=== PATIENT | male | born 1950 | race Caucasian/White ===

== ENCOUNTER → 2017-02-12 | Outpatient (CLI) | payer MEDICARE, BC, OTHER ==
[~2017-02-12] MED LIST: /PANT40TA; ASPI325T; HYDROXYUREA; LOVA40TA; METO25TA2; PHEN300C; PHENYTOIN SODIUM
[2017-02-12 13:29] LABS: ADD MANUAL DIFFER YES; MEAN CORPUSCULAR HEMOGLOBIN 44.9 pg (27.0-33.0); MEAN CORPUSCULAR HGB CONC 36.5 g/dl (32.0-36.5); MEAN CORPUSCULAR VOLUME 122.9 fl (80.0-96.0); PLATELET COUNT, AUTOMATED 311 k/mm3 (150-450); RED CELL DISTRIBUTION WIDTH 12.6 % (11.5-14.5); WHITE BLOOD COUNT 7.2 K/mm3 (4.0-10.0)
[2017-02-12 14:07] LABS: HYPERSEGMENTED POLYS 1+
[2017-02-12 14:23] LABS: ALBUMIN 4.2 GM/DL (3.2-5.2); ALBUMIN/GLOBULIN RATIO 1.24 (1.00-1.93); ALKALINE PHOSPHATASE 102 U/L (45-117); ALT/SGPT 22 U/L (12-78); ANION GAP 7 MEQ/L (8-16); AST/SGOT 16 U/L (15-37); BILIRUBIN,TOTAL 0.7 MG/DL (0.2-1.0); BLOOD UREA NITROGEN 22 MG/DL (7-18); CALCIUM LEVEL 9.3 MG/DL (8.8-10.2); CARBON DIOXIDE LEVEL 30 MEQ/L (21-32); CHLORIDE LEVEL 104 MEQ/L (98-107); CREATININE FOR GFR 0.86 MG/DL (0.70-1.30); GLOMERULAR FILTRATION RATE > 60.0 (>49); GLUCOSE, FASTING 77 MG/DL (80-110); POTASSIUM SERUM 4.6 MEQ/L (3.5-5.1); SODIUM LEVEL 141 MEQ/L (136-145); TOTAL PROTEIN 7.6 GM/DL (6.4-8.2); URIC ACID 4.1 MG/DL (3.5-7.2)
[2017-02-12 14:50] LABS: ERYTHROCYTE SEDIMENTATION RATE 24 mm/hr (0-20)
== END ==
LOC: M SMT 10:25
PROVIDERS: ATTEND Family Medicine
DX: L03.115 Cellulitis of right lower limb (principal); R23.3 Spontaneous ecchymoses

== ENCOUNTER → 2017-07-29 | Outpatient (REF) | payer MEDICARE, OTHER ==
[2017-07-29 13:52] LABS: FREE T4 0.87 NG/DL (0.76-1.46)
[2017-07-30 14:14] LABS: PSA TOTAL 1.2 ng/mL (0.0-4.0)
== END ==
LOC: M LAB REF 12:31
PROVIDERS: ATTEND Family Medicine
DX: E78.2 Mixed hyperlipidemia (principal); K22.70 Barrett's esophagus without dysplasia; R35.1 Nocturia

== ENCOUNTER → 2017-11-06 | Outpatient (REF) | payer MEDICARE, OTHER ==
[2017-11-06 14:18] LABS: INFLUENZA A AMPLIFICATION NEGATIVE (NEGATIVE); INFLUENZA B AMPLIFICATION NEGATIVE (NEGATIVE)
== END ==
LOC: M LAB REF 13:05
DX: J06.9 Acute upper respiratory infection, unspecified (principal)
CPT/HCPCS: 87502

== ENCOUNTER → 2017-11-08 | Outpatient (CLI) | payer MEDICARE, BC, OTHER | LOC: M SMT 09:48 | DX: J16.8 Pneumonia due to other specified infectious organisms (principal) | CPT/HCPCS: 71046 ==

== ENCOUNTER → 2017-11-18 | Outpatient (CLI) | payer MEDICARE, BC, OTHER | LOC: M SMT 15:05 | DX: J16.8 Pneumonia due to other specified infectious organisms (principal) | CPT/HCPCS: 71046 ==

== ENCOUNTER → 2017-11-19 | Outpatient (REF) | payer MEDICARE, OTHER | LOC: M LAB REF 16:57 | DX: J16.8 Pneumonia due to other specified infectious organisms (principal) | CPT/HCPCS: 87205 ==

== ENCOUNTER 2017-12-02 10:28 | Inpatient (IN) | payer MEDICARE, BC, OTHER ==
[2017-12-02] MEDS: ENOXAPARIN 40 MG/0.4 ML SYRINGE (J1650) SC (09:00)
[2017-12-02] MEDS ORDERED: IPRATROPIUM 0.5MG/ALBUTEROL 2.5MG INH SOL UD 3ML (DUONEB)(J7620) NEB ×3 (11:15→17:00)
[2017-12-02 12:09] LABS: VENOUS BASE EXCESS 1.6 (-2.0-2.0); VENOUS HCO3 25.4 MEQ/L (23.0-27.0); VENOUS O2 SATURATION 80.7 % (60.0-80.0); VENOUS PARTIAL PRESSURE CO2 37.4 mmHg (38.0-50.0); VENOUS STANDARD HCO3 25.5 MEQ/L; VENOUS TOTAL CO2 26.6 MEQ/L (24.0-28.0)
[2017-12-02 12:21] LABS: PROTHROMBIN TIME 14.3 SECONDS (12.4-14.5)
[2017-12-02] MEDS: methylPREDNISolone INJ 125 MG/2 ML VIAL (J2930) IV (12:22)
[2017-12-02 12:23] LABS: BASO % 0.5 % (0.0-1.0); EOS # 0.1 10^3/uL (0.0-0.50); EOS % 0.9 % (0.0-3.0); HEMATOCRIT 33.5 % (42.0-52.0); HEMOGLOBIN 12.2 g/dl (13.5-17.5); IMMATURE GRANULOCYTE % 0.2 % (0-3.0); LYMPH # 1.1 10^3/uL (1.5-4.5); LYMPH % 19.9 % (24.0-44.0); MEAN CORPUSCULAR HEMOGLOBIN 41.5 pg (27.0-33.0); MEAN CORPUSCULAR HGB CONC 36.4 g/dl (32.0-36.5); MEAN CORPUSCULAR VOLUME 113.9 fl (80.0-96.0); MONO # 0.6 10^3/uL (0.0-0.8); MONO % 10.4 % (0.0-5.0); NEUTROPHILS # 3.8 10^3/uL (1.8-7.7); NEUTROPHILS % 68.1 % (36.0-66.0); PLATELET COUNT, AUTOMATED 406 10^3/uL (150-450); RED BLOOD COUNT 2.94 10^6/uL (4.30-6.10); RED CELL DISTRIBUTION WIDTH 11.9 % (11.5-14.5); WHITE BLOOD COUNT 5.6 10^3/uL (4.0-10.0)
[2017-12-02 12:37] LABS: LACTIC ACID SEPSIS PROTOCOL 0.8 MMOL/L (0.4-2.0)
[2017-12-02 12:39] LABS: ALBUMIN 4.1 GM/DL (3.2-5.2); ALBUMIN/GLOBULIN RATIO 1.03 (1.00-1.93); ALKALINE PHOSPHATASE 117 U/L (45-117); ALT/SGPT 23 U/L (12-78); ANION GAP 5 MEQ/L (8-16); AST/SGOT 23 U/L (7-37); BILIRUBIN,DIRECT 0.1 MG/DL (0.0-0.2); BILIRUBIN,TOTAL 0.4 MG/DL (0.2-1.0); BLOOD UREA NITROGEN 11 MG/DL (7-18); CALCIUM LEVEL 8.8 MG/DL (8.8-10.2); CARBON DIOXIDE LEVEL 28 MEQ/L (21-32); CHLORIDE LEVEL 108 MEQ/L (98-107); CPK CREATINE PHOSPHOKINASE 69 U/L (39-308); CREATININE FOR GFR 0.83 MG/DL (0.70-1.30); GLOMERULAR FILTRATION RATE > 60.0 (>49); GLUCOSE, FASTING 84 MG/DL (70-100); POTASSIUM SERUM 4.2 MEQ/L (3.5-5.1); SODIUM LEVEL 141 MEQ/L (136-145); TOTAL PROTEIN 8.1 GM/DL (6.4-8.2); TROPONIN I < 0.02 NG/ML (< 0.10)
[2017-12-02 12:45] LABS: CK-MB VALUE MASS < 1.0 NG/ML (<3.6); MB/CK RELATIVE INDEX 1.44 (< OR =4); NT-PRO BNP 230 PG/ML (<125)
[2017-12-02] MEDS ORDERED: ISOVUE-370 76% 100ML VIAL (Q9967) As Ordered (13:34)
[2017-12-02 15:13] LABS: PHENYTOIN (DILANTIN) 5.7 UG/ML (10.0-20.0)
[2017-12-02] MEDS ORDERED: ACETAMINOPHEN TAB 650MG DOSE (2X325MG) PO (16:30)
[2017-12-02] MEDS ORDERED: NITROGLYCERIN 0.4 MG SUBL TABLET SL (16:30)
[2017-12-02 17:02] LABS: C REACTIVE PROTEIN QUANTITATIV 0.63 MG/DL (0.00-0.30)
[2017-12-02 17:14] LABS: ERYTHROCYTE SEDIMENTATION RATE 43 mm/hr (0-20)
[2017-12-02] MEDS: predniSONE 20 MG TAB PO (18:53)
[2017-12-02] MEDS: IPRATROPIUM 0.5MG/ALBUTEROL 2.5MG INH SOL UD 3ML (DUONEB)(J7620) NEB ×2 (20:11→23:25)
[2017-12-02] MEDS ORDERED: SLF 3 ML SYR IV (20:15)
[2017-12-02] MEDS: SIMVASTATIN 40 MG TAB PO (21:31)
[2017-12-02] MEDS: PANTOPRAZOLE 40MG TAB (PROTONIX) PO (21:31)
[2017-12-02] MEDS: HYDROXYUREA 500 MG CAP PO (21:32)
[2017-12-02] MEDS: METOPROLOL SUCC *XL* 25MG TAB (TopROL *XL*) PO (21:32)
[2017-12-02] MEDS: ASPIRIN 81 MG ENTERIC TAB PO (21:32)
[2017-12-02] MEDS: PHENYTOIN ER 100 MG CAP PO (21:32)
[2017-12-02] MEDS: LevoFLOXacin IV 750 MG in APPROPRIATE DILUENT 1 EA IV (21:32)
[2017-12-02] MEDS: SLF 3 ML SYR IV (21:33)
[2017-12-02 23:10] LABS: CPK CREATINE PHOSPHOKINASE 51 U/L (39-308); TROPONIN I < 0.02 NG/ML (< 0.10)
[2017-12-02 23:11] LABS: CK-MB VALUE MASS < 1.0 NG/ML (<3.6); MB/CK RELATIVE INDEX 1.96 (< OR =4)
[2017-12-03 05:20] LABS: BASO % 0.2 % (0.0-1.0); HEMATOCRIT 32.9 % (42.0-52.0); HEMOGLOBIN 12.1 g/dl (13.5-17.5); IMMATURE GRANULOCYTE % 0.5 % (0-3.0); LYMPH # 0.6 10^3/uL (1.5-4.5); LYMPH % 9.1 % (24.0-44.0); MEAN CORPUSCULAR HEMOGLOBIN 42.2 pg (27.0-33.0); MEAN CORPUSCULAR HGB CONC 36.8 g/dl (32.0-36.5); MONO # 0.4 10^3/uL (0.0-0.8); MONO % 5.9 % (0.0-5.0); NEUTROPHILS # 5.3 10^3/uL (1.8-7.7); NEUTROPHILS % 84.3 % (36.0-66.0); PLATELET COUNT, AUTOMATED 344 10^3/uL (150-450); RED BLOOD COUNT 2.87 10^6/uL (4.30-6.10); RED CELL DISTRIBUTION WIDTH 11.9 % (11.5-14.5); WHITE BLOOD COUNT 6.2 10^3/uL (4.0-10.0)
[2017-12-03 05:23] LABS: ADD MORPHOLOGY? YES; MEAN CORPUSCULAR VOLUME 114.6 fl (80.0-96.0); POSITIVE MORPH POS FLAG
[2017-12-03 05:50] LABS: ANION GAP 7 MEQ/L (8-16); BLOOD UREA NITROGEN 10 MG/DL (7-18); CALCIUM LEVEL 8.7 MG/DL (8.8-10.2); CARBON DIOXIDE LEVEL 25 MEQ/L (21-32); CHLORIDE LEVEL 108 MEQ/L (98-107); CK-MB VALUE MASS < 1.0 NG/ML (<3.6); CPK CREATINE PHOSPHOKINASE 40 U/L (39-308); CREATININE FOR GFR 0.83 MG/DL (0.70-1.30); GLOMERULAR FILTRATION RATE > 60.0 (>49); GLUCOSE, FASTING 122 MG/DL (70-100); POTASSIUM SERUM 4.1 MEQ/L (3.5-5.1); SODIUM LEVEL 140 MEQ/L (136-145); TROPONIN I < 0.02 NG/ML (< 0.10)
[2017-12-03 05:56] LABS: PLATELET ESTIMATE NORMAL (NORMAL)
[2017-12-03 05:57] LABS: OVALOCYTES 1+
[2017-12-03] MEDS: SLF 3 ML SYR IV ×3 (06:04→20:22)
[2017-12-03] MEDS: IPRATROPIUM 0.5MG/ALBUTEROL 2.5MG INH SOL UD 3ML (DUONEB)(J7620) NEB ×3 (06:18→21:39)
[2017-12-03] MEDS: ENOXAPARIN 40 MG/0.4 ML SYRINGE (J1650) SC (09:00)
[2017-12-03] MEDS: VITAMIN D 1,000 INTERNATIONAL UNITS TABLET PO (09:09)
[2017-12-03] MEDS: OMEGA-3 1050MG CAPSULE PO (09:09)
[2017-12-03] MEDS: HYDROXYUREA 500 MG CAP PO ×3 (09:09→20:25)
[2017-12-03] MEDS: MULTIVITAMINS/MINERALS THERAP 1 TAB PO (09:09)
[2017-12-03] MEDS: predniSONE 20 MG TAB PO (09:09)
[2017-12-03 15:06] LABS: CK-MB VALUE MASS < 1.0 NG/ML (<3.6); CPK CREATINE PHOSPHOKINASE 41 U/L (39-308); MB/CK RELATIVE INDEX 2.43 (< OR =4); TROPONIN I < 0.02 NG/ML (< 0.10)
[2017-12-03] MEDS: PHENYTOIN ER 100 MG CAP PO (20:19)
[2017-12-03] MEDS: SIMVASTATIN 40 MG TAB PO (20:20)
[2017-12-03] MEDS: ASPIRIN 81 MG ENTERIC TAB PO (20:20)
[2017-12-03] MEDS: PANTOPRAZOLE 40MG TAB (PROTONIX) PO (20:20)
[2017-12-03] MEDS: METOPROLOL SUCC *XL* 25MG TAB (TopROL *XL*) PO (20:25)
[2017-12-04] MEDS: IPRATROPIUM 0.5MG/ALBUTEROL 2.5MG INH SOL UD 3ML (DUONEB)(J7620) NEB ×2 (02:00→07:44)
[2017-12-04] MEDS: SLF 3 ML SYR IV (06:01)
[2017-12-04 07:30] LABS: BASO % 0.6 % (0.0-1.0); EOS % 0.3 % (0.0-3.0); IMMATURE GRANULOCYTE % 0.3 % (0-3.0); LYMPH # 1.6 10^3/uL (1.5-4.5); LYMPH % 23.5 % (24.0-44.0); MEAN CORPUSCULAR HEMOGLOBIN 42.1 pg (27.0-33.0); MEAN CORPUSCULAR HGB CONC 36.4 g/dl (32.0-36.5); MONO # 0.6 10^3/uL (0.0-0.8); MONO % 9.1 % (0.0-5.0); NEUTROPHILS # 4.5 10^3/uL (1.8-7.7); NEUTROPHILS % 66.2 % (36.0-66.0); PLATELET COUNT, AUTOMATED 392 10^3/uL (150-450); RED BLOOD COUNT 2.85 10^6/uL (4.30-6.10); RED CELL DISTRIBUTION WIDTH 12.1 % (11.5-14.5); WHITE BLOOD COUNT 6.8 10^3/uL (4.0-10.0)
[2017-12-04 07:36] LABS: ADD MORPHOLOGY? YES; MEAN CORPUSCULAR VOLUME 115.8 fl (80.0-96.0); POSITIVE MORPH POS FLAG
[2017-12-04 07:42] LABS: ANION GAP 6 MEQ/L (8-16); BLOOD UREA NITROGEN 15 MG/DL (7-18); CALCIUM LEVEL 8.8 MG/DL (8.8-10.2); CARBON DIOXIDE LEVEL 28 MEQ/L (21-32); CHLORIDE LEVEL 108 MEQ/L (98-107); CREATININE FOR GFR 0.92 MG/DL (0.70-1.30); GLOMERULAR FILTRATION RATE > 60.0 (>49); GLUCOSE, FASTING 88 MG/DL (70-100); POTASSIUM SERUM 3.8 MEQ/L (3.5-5.1); SODIUM LEVEL 142 MEQ/L (136-145)
[2017-12-04 07:54] LABS: OVALOCYTES 1+; PLATELET ESTIMATE NORMAL (NORMAL); TEAR DROP CELLS 1+
[2017-12-04] MEDS: predniSONE 20 MG TAB PO (08:33)
[2017-12-04] MEDS: OMEGA-3 1050MG CAPSULE PO (08:33)
[2017-12-04] MEDS: VITAMIN D 1,000 INTERNATIONAL UNITS TABLET PO (08:33)
[2017-12-04] MEDS: MULTIVITAMINS/MINERALS THERAP 1 TAB PO (08:33)
[2017-12-04] MEDS: HYDROXYUREA 500 MG CAP PO (08:33)
[2017-12-07 00:07] LABS: BLASTOMYCES ANTIBODY LEVEL Negative (Neg:<1:1)
== END 2017-12-04 10:10 | disposition home or self-care (01) | DRG 192 ==
LOC: M PED 12-03 13:30 → M ED 10:28 → M ED INP 17:12 → M PCU 18:46
DX: J44.1 Chronic obstructive pulmonary disease with (acute) exacerbation (principal); I25.10 Atherosclerotic heart disease of native coronary artery without angina pectoris; I25.2 Old myocardial infarction; D47.3 Essential (hemorrhagic) thrombocythemia; G40.909 Epilepsy, unspecified, not intractable, without status epilepticus; I10 Essential (primary) hypertension; K21.9 Gastro-esophageal reflux disease without esophagitis; E78.5 Hyperlipidemia, unspecified; I27.20 Pulmonary hypertension, unspecified; G47.33 Obstructive sleep apnea (adult) (pediatric); I71.4 Abdominal aortic aneurysm, without rupture; E55.9 Vitamin D deficiency, unspecified; Z79.82 Long term (current) use of aspirin; Z79.899 Other long term (current) drug therapy; Z87.891 Personal history of nicotine dependence

== ENCOUNTER 2018-01-08 08:17 | Day surgery (SDC) | payer MEDICARE, BC, OTHER ==
[~2018-01-08 08:17] MED LIST changes: -/PANT40TA; -ASPI325T; -HYDROXYUREA; -LOVA40TA; -METO25TA2; -PHEN300C; -PHENYTOIN SODIUM; +PROPOFOL 200 MG/20 ML VIAL As Ordered
[2018-01-08] MEDS ORDERED: NS 1,000 ML IV (08:30)
[2018-01-08] MEDS ORDERED: LIDOCAINE 2% INJ 100 MG/5 ML SDV (FOR ANES.) As Ordered (08:54)
[2018-01-08] MEDS ORDERED: fentaNYL 100 MCG/2 ML INJECTION (J3010) As Ordered (09:09)
[2018-01-08] MEDS ORDERED: PHENYLephrine HCL 500 MCG/5 ML (100MCG/ML) SYRINGE (J2370) As Ordered (09:19)
== END 2018-01-08 10:29 | disposition home or self-care (01) ==
LOC: M OPP 08:17
DX: Z12.11 Encounter for screening for malignant neoplasm of colon (principal); K57.30 Diverticulosis of large intestine without perforation or abscess without bleeding; K64.0 First degree hemorrhoids; D12.6 Benign neoplasm of colon, unspecified; Z86.010 Personal history of colon polyps; E78.00 Pure hypercholesterolemia, unspecified; G47.30 Sleep apnea, unspecified; K21.9 Gastro-esophageal reflux disease without esophagitis; K22.8 Other specified diseases of esophagus; R12 Heartburn; I25.2 Old myocardial infarction; Z79.82 Long term (current) use of aspirin; Z79.899 Other long term (current) drug therapy; Z86.69 Personal history of other diseases of the nervous system and sense organs; Z95.5 Presence of coronary angioplasty implant and graft; Z86.2 Personal history of diseases of the blood and blood-forming organs and certain disorders involving the immune mechanism; Z87.891 Personal history of nicotine dependence; Z83.71 Family history of colonic polyps
CPT/HCPCS: 45385

== ENCOUNTER → 2018-05-02 | Outpatient (REF) | payer MEDICARE, OTHER ==
[2018-05-02 11:01] LABS: MAGNESIUM LEVEL 2.2 MG/DL (1.8-2.4)
== END ==
LOC: M LAB REF 10:33
DX: D47.3 Essential (hemorrhagic) thrombocythemia (principal)
CPT/HCPCS: 83735

== ENCOUNTER → 2018-06-10 | Outpatient (REF) | payer MEDICARE, BC, OTHER ==
[2018-06-10 14:40] LABS: CHOLESTEROL LEVEL 155 MG/DL (<200); CHOLESTEROL RISK RATIO 2.348 (<5); HDL CHOLESTEROL 66 MG/DL (>40); NON-HDL-C 89 MG/DL; TRIGLYCERIDES LEVEL 96 MG/DL (<150)
[2018-06-10 14:41] LABS: LDL CHOLESTEROL 69.8 MG/DL (<100)
== END ==
LOC: M LAB REF 10:48
DX: E78.2 Mixed hyperlipidemia (principal)
CPT/HCPCS: 80061

== ENCOUNTER → 2020-01-07 | Outpatient (REF) | payer MEDICARE, OTHER ==
[~2020-01-07] MED LIST changes: +ALBU83IN INH; +ANDR4DIS; +ASPI1TAB15 PO; +ASPI325T; +CEFU50TA PO; +COMP1MIS3 XX; +EPIN0.3I11 IJ; +FULLMIS XX; +HYDR500C3 PO; +HYDROXYUREA; +LOVA40TA; +LOVA40TA PO; +METO1TAB32 PO; +METO25TA2; +NEBUMIS2 XX; +NITR4TASL SL; +OMEG100011 PO; +PANT40TA3 PO; +PHEN100C PO; +PHEN300C; +PHENYTOIN SODIUM; +PRED10TA2 PO; -PROPOFOL 200 MG/20 ML VIAL As Ordered; +PROT1TAB2; +VENTAER IN; +VENTAER INH; +VITA100066 PO; +VITA500T88 PO; +VITMTA PO
[2020-01-07 13:03] LABS: BASO # 0.1 10^3/uL (0.0-0.2); BASO % 1.8 % (0.0-1.0); EOS # 0.1 10^3/uL (0.0-0.5); HEMATOCRIT 36.7 % (42.0-52.0); HEMOGLOBIN 13.4 g/dl (13.5-17.5); LYMPH # 0.9 10^3/uL (1.5-5.0); MEAN CORPUSCULAR HGB CONC 36.5 g/dl (32.0-36.5); MONO # 0.6 10^3/uL (0.0-0.8); MONO % 12.7 % (0.0-5.0); NEUTROPHILS # 3.2 10^3/uL (1.5-8.5); NEUTROPHILS % 65.3 % (36.0-66.0); PLATELET COUNT, AUTOMATED 520 10^3/uL (150-450); RED BLOOD COUNT 3.19 10^6/uL (4.30-6.10)
[2020-01-07 13:12] LABS: ALT/SGPT 30 U/L (12-78); BILIRUBIN,TOTAL 0.4 MG/DL (0.2-1.0); BLOOD UREA NITROGEN 21 MG/DL (7-18); CALCIUM LEVEL 8.7 MG/DL (8.8-10.2); CARBON DIOXIDE LEVEL 27 MEQ/L (21-32); CHLORIDE LEVEL 109 MEQ/L (98-107); CHOLESTEROL LEVEL 104 MG/DL (<200); CHOLESTEROL RISK RATIO 2.166 (<5); CREATININE FOR GFR 0.86 MG/DL (0.70-1.30); GLOMERULAR FILTRATION RATE > 60.0 (>49); GLUCOSE, FASTING 89 MG/DL (70-100); HDL CHOLESTEROL 48 MG/DL (>40); LDL CHOLESTEROL 44 MG/DL (<100); NON-HDL-C 56 MG/DL; POTASSIUM SERUM 4.3 MEQ/L (3.5-5.1); SODIUM LEVEL 142 MEQ/L (136-145); TOTAL PROTEIN 7.5 GM/DL (6.4-8.2); TRIGLYCERIDES LEVEL 59 MG/DL (<150)
== END ==
LOC: M LAB REF 12:24
PROVIDERS: ATTEND Family Medicine
DX: E78.2 Mixed hyperlipidemia (principal); D47.3 Essential (hemorrhagic) thrombocythemia

== ENCOUNTER → 2020-08-30 | Outpatient (REF) | payer MEDICARE, OTHER ==
[~2020-08-30] MED LIST changes: +ASPI-546 PO; -ASPI1TAB15 PO; +ATOR40TA75 PO; +D31000TA2 PO; +EPIP0.3I2 IM; +PANT40TA29 PO; -PANT40TA3 PO
== END ==
LOC: M LAB REF 18:18
PROVIDERS: ATTEND Physician Assistant
DX: J06.9 Acute upper respiratory infection, unspecified (principal)

== ENCOUNTER → 2021-11-17 | Outpatient (CLI) | payer MEDICARE, BC, OTHER ==
[~2021-11-17] MED LIST changes: +CLOT1CRE56 TOP; +COVI30VI IM; -D31000TA2 PO; +VITA100093 PO; +VITA500C24 PO
== END ==
LOC: M PLAIMG 07:40
PROVIDERS: ATTEND Physician Assistant
DX: M47.812 Spondylosis without myelopathy or radiculopathy, cervical region (principal); M43.12 Spondylolisthesis, cervical region; M50.221 Other cervical disc displacement at C4-C5 level; M50.222 Other cervical disc displacement at C5-C6 level; M50.223 Other cervical disc displacement at C6-C7 level; M50.21 Other cervical disc displacement, high cervical region; M48.02 Spinal stenosis, cervical region

== ENCOUNTER → 2022-01-16 | Outpatient (CLI) | payer MEDICARE, BC, OTHER ==
[~2022-01-16] MED LIST changes: +ALBU2.5V10 INH; -ALBU83IN INH
[2022-01-16 10:25] LABS: APPEARANCE, URINE HAZY (CLEAR); BACTERIA, URINE AUTO NEGATIVE (NEGATIVE); BILIRUBIN, URINE AUTO NEGATIVE (NEGATIVE); BLOOD, URINE BLOOD NEGATIVE (NEGATIVE); COLOR, URINE AMBER (YELLOW); GLUCOSE, URINE (UA) AUTO NEGATIVE (NEGATIVE); KETONE, URINE AUTO TRACE mg/dL (NEGATIVE); LEUKOCYTE ESTERASE, URINE AUTO NEGATIVE (NEGATIVE); NITRITE, URINE AUTO NEGATIVE (NEGATIVE); PROTEIN, URINE AUTO NEGATIVE (NEGATIVE); RBC, URINE AUTO 0 /HPF (0-3); SPECIFIC GRAVITY URINE AUTO 1.027 (1.002-1.035); SQUAMOUS EPITHELIAL CELL UR AU 0 /HPF (0-6); UROBILINOGEN, URINE AUTO 0.2 mg/dL (0.0-2.0); WBC, URINE AUTO 1 /HPF (0-3)
[2022-01-16 10:28] LABS: BASO # 0.1 10^3/uL (0.0-0.2); BASO % 1.3 % (0.0-1.0); EOS # 0.1 10^3/uL (0.0-0.5); LYMPH # 1.5 10^3/uL (1.5-5.0); LYMPH % 24.4 % (24.0-44.0); MEAN CORPUSCULAR HEMOGLOBIN 39.1 pg (27.0-33.0); MEAN CORPUSCULAR HGB CONC 35.9 g/dl (32.0-36.5); MEAN CORPUSCULAR VOLUME 108.9 fl (80.0-96.0); MONO # 0.8 10^3/uL (0.0-0.8); MONO % 12.8 % (2.0-8.0); NEUTROPHILS # 3.5 10^3/uL (1.5-8.5); NEUTROPHILS % 58.7 % (36.0-66.0); PLATELET COUNT, AUTOMATED 477 10^3/uL (150-450); RED BLOOD COUNT 3.58 10^6/uL (4.30-6.10)
[2022-01-16 10:45] LABS: INR 1.09; PROTHROMBIN TIME 14.5 SECONDS (12.7-14.5)
[2022-01-16 10:46] LABS: PARTIAL THROMBOPLASTIN TIME 31.5 SECONDS (25.9-37.0)
[2022-01-16 11:20] LABS: ALT/SGPT 28 U/L (12-78); BILIRUBIN,TOTAL 0.4 MG/DL (0.2-1.0); BLOOD UREA NITROGEN 25 MG/DL (7-18); CALCIUM LEVEL 8.9 MG/DL (8.8-10.2); CARBON DIOXIDE LEVEL 30 MEQ/L (21-32); CHLORIDE LEVEL 104 MEQ/L (98-107); GLOMERULAR FILTRATION RATE > 60.0 (>49); GLUCOSE, FASTING 87 MG/DL (70-100); POTASSIUM SERUM 4.6 MEQ/L (3.5-5.1); SODIUM LEVEL 138 MEQ/L (136-145); TOTAL PROTEIN 7.2 GM/DL (6.4-8.2)
== END ==
LOC: M PLAIMG 08:16
PROVIDERS: ATTEND Physician Assistant
DX: Z01.818 Encounter for other preprocedural examination (principal); Z79.899 Other long term (current) drug therapy

== ENCOUNTER 2023-08-27 11:35 | Day surgery (SDC) | payer MEDICARE, BC, OTHER ==
[~2023-08-27] VITALS: Ht 165.1 cm; Wt 65.8 kg
[~2023-08-27 11:35] MED LIST changes: +DILA100C PO; +LIDOCAINE 2% 100MG/5ML SDV (FOR ANES.) As Ordered ONE; +NS 1,000 ML IV ONE; +PIME1CRE TOP; +TIZA4CAP PO; +TRIA1CR80 TOP; +propofoL 200 MG/20 ML VIAL As Ordered ONE
[2023-08-27] MEDS ORDERED: fentaNYL 100 MCG/2 ML INJECTION As Ordered ONE (12:43)
[2023-08-27 13:23] VITALS: TEMP 96.6
[2023-08-27 13:45] VITALS: BP 100/58; O2SAT 96
== END 2023-08-27 13:50 | disposition home or self-care (01) ==
LOC: M OPP 11:35
PROVIDERS: ATTEND Internal Medicine Gastroenterology
DX: Z12.11 Encounter for screening for malignant neoplasm of colon (principal); Z86.010 Personal history of colon polyps; Z83.719 Family history of colon polyps, unspecified; D12.6 Benign neoplasm of colon, unspecified; K64.0 First degree hemorrhoids; K22.89 Other specified disease of esophagus; R12 Heartburn; G47.30 Sleep apnea, unspecified; Z86.74 Personal history of sudden cardiac arrest; Z79.02 Long term (current) use of antithrombotics/antiplatelets; Z79.1 Long term (current) use of non-steroidal anti-inflammatories (NSAID); Z79.51 Long term (current) use of inhaled steroids; Z79.621 Long term (current) use of calcineurin inhibitor; Z79.64 Long term (current) use of myelosuppressive agent; Z79.82 Long term (current) use of aspirin; Z79.891 Long term (current) use of opiate analgesic; Z79.899 Other long term (current) drug therapy
CPT/HCPCS: 43239; 45385; 88305; J3010

== ENCOUNTER → 2024-04-13 | Outpatient (REF) | payer MEDICARE, BC, OTHER ==
[~2024-04-13] MED LIST changes: -LIDOCAINE 2% 100MG/5ML SDV (FOR ANES.) As Ordered ONE; -NS 1,000 ML IV ONE; -propofoL 200 MG/20 ML VIAL As Ordered ONE
[2024-04-13 08:28] LABS: BASO # 0.1 10^3/uL (0.0-0.2); BASO % 1.1 % (0.0-1.0); EOS # 0.1 10^3/uL (0.0-0.5); EOS % 1.6 % (0.0-3.0); HEMATOCRIT 38.9 % (42.0-52.0); LYMPH # 1.2 10^3/uL (1.5-5.0); MEAN CORPUSCULAR HEMOGLOBIN 37.3 pg (27.0-33.0); MEAN CORPUSCULAR VOLUME 103.7 fl (80.0-96.0); MONO # 0.7 10^3/uL (0.0-0.8); MONO % 10.6 % (2.0-8.0); NEUTROPHILS # 4.3 10^3/uL (1.5-8.5); NEUTROPHILS % 67.2 % (36.0-66.0); PLATELET COUNT, AUTOMATED 494 10^3/uL (150-450); RED BLOOD COUNT 3.75 10^6/uL (4.30-6.10); WHITE BLOOD COUNT 6.4 10^3/uL (4.0-10.0)
[2024-04-13 09:02] LABS: PHENYTOIN (DILANTIN) 4.7 UG/ML (10.0-20.0)
[2024-04-13 09:04] LABS: ALBUMIN 4.1 G/DL (3.2-5.2); ALKALINE PHOSPHATASE 104 U/L (46-116); ALT/SGPT 26 U/L (7.0-40); AST/SGOT 20 U/L (<34); BILIRUBIN,TOTAL 0.6 MG/DL (0.3-1.2); BLOOD UREA NITROGEN 17 MG/DL (9-23); CALCIUM LEVEL 9.6 MG/DL (8.3-10.6); CARBON DIOXIDE LEVEL 31 MMOL/L (20-31); CHLORIDE LEVEL 107 MMOL/L (98-107); CREATININE FOR GFR 0.89 MG/DL (0.70-1.30); GLOMERULAR FILTRATION RATE > 60.0 (>42); GLUCOSE, FASTING 82 MG/DL (74-106); POTASSIUM SERUM 4.3 MMOL/L (3.5-5.1); SODIUM LEVEL 140 MMOL/L (136-145); TOTAL PROTEIN 7.1 G/DL (5.7-8.2)
== END ==
LOC: M LAB REF 08:14
PROVIDERS: ATTEND Psychiatry & Neurology Neurology
DX: R56.9 Unspecified convulsions (principal)

== ENCOUNTER → 2024-06-01 | Outpatient (REF) | payer MEDICARE, OTHER | LOC: M LAB REF 16:58 | PROVIDERS: ATTEND Nurse Practitioner Adult Health | DX: N39.0 Urinary tract infection, site not specified (principal) ==

== ENCOUNTER → 2024-11-11 | Outpatient (CLI) | payer MEDICARE, BC | LOC: M CARPUL 08:41 | PROVIDERS: ATTEND Physician Assistant | DX: I77.810 Thoracic aortic ectasia (principal); I36.1 Nonrheumatic tricuspid (valve) insufficiency; I37.1 Nonrheumatic pulmonary valve insufficiency ==